=== PATIENT | female | born 1980 | race Caucasian/White ===

== ENCOUNTER 2022-06-04 18:38 | Emergency (ER) | payer BC ==
[~2022-06-04] VITALS: Ht 157.5 cm; Wt 64.5 kg
[2022-06-04] MEDS ORDERED: CITA10TA99 PO (19:10)
[2022-06-04] MEDS ORDERED: ISOT30CA14 PO (19:10)
[2022-06-04] MEDS ORDERED: LISI-893 PO (19:10)
[2022-06-04] MEDS ORDERED: PHEN-846 PO (20:43)
[2022-06-04] MEDS ORDERED: NITR-75 PO (20:43)
[2022-06-04 21:11] VITALS: BP 124/74
[2022-06-04 21:57] LABS: APPEARANCE,URINE HAZY (CLEAR); BILIRUBIN,URINE NEGATIVE (NEGATIVE); GLUCOSE, URINE (UA) 70-100 mg/dL (NEGATIVE); KETONES,URINE TRACE mg/dL (NEGATIVE); LEUKOCYTE ESTERASE ,URINE LARGE (NEGATIVE); NITRATE,URINE NEGATIVE (NEGATIVE); OCCULT BLOOD,URINE SMALL (NEGATIVE); PH,URINE 5.5 (5.0-8.0); PROTEIN,URINE 30-70 mg/dL (NEGATIVE); SPECIFIC GRAVITIY, URINE 1.039 (1.003-1.030); UROBILINOGEN,URINE <=1.0 mg/dL (<=1.0)
[2022-06-04 22:16] LABS: WBC,URINE 51-100 /HPF (0-5)
[2022-06-04 22:17] LABS: BACTERIA,URINE Moderate /HPF (None Seen)
== END 2022-06-04 21:45 | disposition home or self-care (01) ==
LOC: EMS 18:40
DX: N39.0 Urinary tract infection, site not specified (principal); E11.9 Type 2 diabetes mellitus without complications; E03.9 Hypothyroidism, unspecified; E78.00 Pure hypercholesterolemia, unspecified; F41.9 Anxiety disorder, unspecified
CPT/HCPCS: 81001; 87086; 99283